=== PATIENT | female | born 1985 | race Caucasian/White ===

== ENCOUNTER 2022-05-26 14:51 | Emergency (ER) | payer OTHER ==
[~2022-05-26 14:51] MED LIST: MOTRIN600 MG PO
[2022-05-26] MEDS ORDERED: CYCLOBENZAPRINE10 MG PO (17:39)
[2022-05-26] MEDS ORDERED: MEDROL 4MG DOSEP4 MG PO (17:39)
== END 2022-05-26 17:35 | disposition home or self-care (01) ==
LOC: FER 14:51
DX: M25.511 Pain in right shoulder (principal); Z28.310 Unvaccinated for COVID-19
CPT/HCPCS: 73030; J1100